=== PATIENT | female | born 1990 | race Hispanic/Latino ===

== ENCOUNTER 2017-03-05 20:56 | Inpatient (IN) | payer BC, OTHER ==
[2017-03-05] MEDS ORDERED: Misoprostol 200 MCG TAB PR PRN (21:24)
[2017-03-05] MEDS ORDERED: Carboprost 250 MCG/ML AMP IM PRN (21:24)
[2017-03-05] MEDS ORDERED: Acetaminophen 500 MG TAB PO PRN (21:24)
[2017-03-05] MEDS ORDERED: Penicillin G Potassium 5 MILL.UNITS in Sodium Chloride 0.9% 100 ML IVPB SCH (21:24)
[2017-03-05] MEDS ORDERED: LR 500 ML/Oxytocin 10 units 500 ML IV SCH (21:24)
[2017-03-05] MEDS ORDERED: Promethazine HCl 25 MG/ML VIAL IM PRN (21:24)
[2017-03-05] MEDS ORDERED: Lidocaine 1% (PF) 30 ML VIAL SC PRN (21:24)
[2017-03-05] MEDS ORDERED: Ibuprofen 800 MG TAB PO PRN (21:24)
[2017-03-05] MEDS ORDERED: Zolpidem Tartrate 5 MG TAB PO PRN (21:24)
[2017-03-05] MEDS ORDERED: Ondansetron HCl/PF 4 MG/2 ML Vial IVP PRN (21:24)
[2017-03-05] MEDS ORDERED: LR / Pitocin 40 units/1000 ml 1,000 ML IV PRN (21:24)
[2017-03-05] MEDS ORDERED: Diphenoxylate HCl/Atropine Tablet PO PRN (21:24)
[2017-03-05] MEDS ORDERED: HYDROcodone/Acetaminophen 5/325 mg Tablet PO PRN (21:24)
[2017-03-05 21:27] VITALS: BMI 29.9
[2017-03-05 21:47] LABS: Hematocrit 37.6 % (36.0-47.0); Mean Platelet Volume 7.8 fL (7.4-10.4); Red Blood Cell (RBC) Count 4.24 mill/uL (4.20-5.40); White Blood Cell (WBC) Count 10.2 thou/uL (4.8-10.8)
[2017-03-05] MEDS: Lactated Ringer's 1,000 ML IV SCH (22:12)
[2017-03-06] MEDS ORDERED: Fentanyl 4 mcg/Marc 0.1% Cadd 100 ML ONE (00:49)
[2017-03-06] MEDS: Lactated Ringer's 1,000 ML IV SCH ×2 (01:43→08:27)
[2017-03-06] MEDS ORDERED: ePHEDrine/0.9% NaCl/PF SYRINGE 50 mg/10 ml SLOW IVP PRN (01:47)
[2017-03-06] MEDS ORDERED: Acetaminophen 325 MG TAB PO PRN (01:47)
[2017-03-06] MEDS ORDERED: Ondansetron HCl/PF 4 MG/2 ML Vial IVP PRN ×2 (01:47→14:14)
[2017-03-06] MEDS ORDERED: diphenhydrAMINE 50 MG/ML VIAL IVP PRN (01:47)
[2017-03-06] MEDS ORDERED: Promethazine HCl 25 MG/ML VIAL IM PRN (01:47)
[2017-03-06] MEDS ORDERED: Lactated Ringer's 500 ML IV PRN (01:47)
[2017-03-06] MEDS ORDERED: Eucerin (Mineral Oil/Petrolatum,White) 30 gm Jar TOP PRN (01:47)
[2017-03-06] MEDS ORDERED: Naloxone HCl 0.4 mg/ml Vial IVP PRN ×2 (01:47)
[2017-03-06] MEDS: Misoprostol 100 MCG TAB VAG SCH ×3 (01:59→16:43)
[2017-03-06] MEDS ORDERED: Fentanyl 4mcg/Marcaine 0.1% Cassette 100 ML EPIDURAL SCH (02:00)
[2017-03-06] MEDS: Penicillin G 2.5 MILL.units 2.5 MILL.UNITS in Premix Bag 1 BAG IVPB SCH ×3 (02:00→16:43)
[2017-03-06] MEDS ORDERED: Communication Order-Pharmacy FS SCH (02:00)
--- NOTE | 2017-03-06 08:22 | PDOC.LDHP ---
Labor and Delivery H&P Chief complaint: scheduled induction HPI: 27yo at 40w4d by LMP here for IOL. Was in spontaneous early labor on admit and progressed to 5cm overnight. Pitocin was started and PCN for GBS ppx. Pt now feeling pressure in LLQ, s/p bolus by anesthesia. Current gestational age (weeks): 40 Due date: 03/02/17 Dating criteria: last menstrual period Grav: 1 Para: 0 Current complications: none Abnormal US findings: No Past Medical History: migraine HURST Current medications: pre-carlo vitamins Previous surgical history: other (cataract surgery, T&A) Allergies/Adverse Reactions: Allergies Allergy/AdvReac Type Severity Reaction Status Date / Time sulfamethoxazole Allergy Mild Rash Verified 03/05/17 21:25 [From Bactrim] trimethoprim [From Bactrim] Allergy Mild Rash Verified 03/05/17 21:25 Social history: none - Physical Exam Vital signs reviewed and normal: yes General: NAD Heart: RRR Lungs: CTAB Abdomen: gravid Extremeties: no edema FHT: category 1 Revere contractions every: q2-3min - Vaginal Exam cm dilated: 9 Effacement: 90% Station: -1 (arom clear) - OB Labs Blood type: AB RH: positive Antibody Screen: negative HIV: negative RPR: negative HEPSAg: negative 1 hour GCT: negative GBS: positive Rubella: immune - Assessment L&D Assessment: term patient in labor - Plan Plan: admit to L&D, labor augmentation if indicated, GBS antibiotic prophylaxis , informed consent obtained, anesthesia consult for pain management
[2017-03-06 11:10] LABS: CO2 Tension (PaCO2) 40.9 mmHg (44.0-56.0)
--- NOTE | 2017-03-06 11:14 | PDOC.OPDEL ---
OB Operative/Delivery Note Delivery Dr/Surgeon: romain Assist: n/a Pre-Delivery Diagnosis: active labor Procedure/Post Delivery Dx: operative vaginal delivery (VE, NRFHT) Weeks gestation: 40 Anesthesia: epidural - Findings A Sex: female - Additional Findings/Plan Placenta delivered: spontaneous Repaired Obstetrical Laceration: episiotomy (2nd degree mediolateral, repaired with 2-0 vicyrl, excellent hemostasis) Estimated blood loss: 400 Compilations/Other Findings: Prolonged deceleration to 60s x 2 min, minimal variability, +4 station, MUNIR, decision made to proceed with VE, Extraction successful in 2 contractions, total rosemary time 90sec, 1 pop off, wesley present, cord gas sent. Tight nuchal x 1, reduced at perineum. Pt tolerated procedure well
[2017-03-06] MEDS ORDERED: Benzocaine/Menthol 20-0.5% 60 ML CAN TOP PRN (14:14)
[2017-03-06] MEDS ORDERED: Milk Of Magnesia 30 ML UDCUP PO PRN (14:14)
[2017-03-06] MEDS ORDERED: Lanolin Ointment 7 GM TUBE TOP PRN (14:14)
[2017-03-06] MEDS ORDERED: LR / Pitocin 40 units/1000 ml 1,000 ML IV SCH (14:14)
[2017-03-06] MEDS ORDERED: Bisacodyl 10 MG SUPP PR PRN (14:14)
[2017-03-06] MEDS ORDERED: Adacel (T-DAP) 0.5 ML VIAL IM ONE (14:14)
[2017-03-06] MEDS ORDERED: HYDROcodone/Acetaminophen 5/325 mg Tablet PO PRN (14:14)
[2017-03-06] MEDS ORDERED: diphenhydrAMINE 25 MG CAP PO PRN (14:14)
[2017-03-06] MEDS ORDERED: Preparation H Ointment 28 GM TUBE PR PRN (14:14)
[2017-03-06] MEDS: Ibuprofen 800 MG TAB PO SCH ×2 (16:40→20:21)
[2017-03-06] MEDS: Ferrous Sulfate 325 MG TAB PO SCH (17:06)
[2017-03-06] MEDS: Docusate (Surfak) 240 MG CAP PO SCH (20:21)
[2017-03-06] MEDS ORDERED: Bupivacaine 0.25% HCL 30 ML VIAL ONE (22:16)
[2017-03-06] MEDS ORDERED: Bupivacaine/Epinephrine 0.25% 30 ML VIAL ONE (22:16)
[2017-03-06] MEDS ORDERED: ePHEDrine/0.9% NaCl/PF SYRINGE 50 mg/10 ml ONE (22:16)
[2017-03-07] MEDS: Ibuprofen 800 MG TAB PO SCH ×3 (04:35→21:08)
[2017-03-07] MEDS: HYDROcodone/Acetaminophen 5/325 mg Tablet PO PRN ×3 (06:00→18:22)
[2017-03-07] MEDS: Ferrous Sulfate 325 MG TAB PO SCH ×2 (07:13→18:22)
[2017-03-07] MEDS: Prenatal Vitamin 1 TAB PO SCH (09:15)
[2017-03-07] MEDS: Docusate (Surfak) 240 MG CAP PO SCH ×2 (09:15→21:09)
[2017-03-07 11:58] VITALS: TEMP 98.1
[2017-03-08] MEDS: Ibuprofen 800 MG TAB PO SCH ×2 (05:21→12:38)
[2017-03-08] MEDS: Ferrous Sulfate 325 MG TAB PO SCH (08:31)
[2017-03-08] MEDS: Prenatal Vitamin 1 TAB PO SCH (08:31)
[2017-03-08] MEDS: Docusate (Surfak) 240 MG CAP PO SCH (08:31)
[2017-03-08 08:42] VITALS: BP 105/61
--- NOTE | 2017-03-08 08:54 | PDOC.PP ---
Post Progress Note Post Day #: 2 Subjective: doing well, no concerns, desires DC PO intake tolerated: yes Flatus: yes Ambulation: yes Vital Signs (12 hours) Temp Pulse Resp BP 03/08/17 07:45 98.1 F 79 18 105/61 Weight Weight 164 lb - Physical Examination Respiratory: non-labored breathing Abdominal: no distention Fundus firm & at: below umb Extremities: negative homans (B) Skin: no rash Psychiatric: normal affect Result Diagrams: 03/05/17 21:30 Additional Labs: Post Labs Hep Bs Antigen Non-Reactive S/CO (NonReactive) 03/05/17 21:30 (1) Vaginal delivery Code(s): O80 - ENCOUNTER FOR FULL-TERM UNCOMPLICATED DELIVERY Status: Acute - Assessment/Plan PPD 2 plan for DC home today.
== END 2017-03-08 13:25 | disposition home or self-care (01) | DRG 775 ==
LOC: L&D 20:56 → 3SW 03-06 15:48
PROVIDERS: ADMIT Student in an Organized Health Care Education/Training Program; ATTEND Student in an Organized Health Care Education/Training Program
PROC: 10907ZC Drainage of Amniotic Fluid, Therapeutic from Products of Conception, Via Natural or Artificial Opening (ICD-10-PCS; 2017-03-05)
PROC: 3E0P3VZ Introduction of Hormone into Female Reproductive, Percutaneous Approach (ICD-10-PCS; 2017-03-05)
PROC: 10D07Z6 Extraction of Products of Conception, Vacuum, Via Natural or Artificial Opening (ICD-10-PCS; principal; 2017-03-06)
PROC: 0W8NXZZ Division of Female Perineum, External Approach (ICD-10-PCS; 2017-03-06)
DX: O76 Abnormality in fetal heart rate and rhythm complicating labor and delivery (principal); O99.824 Streptococcus B carrier state complicating childbirth; Z37.0 Single live birth; Z3A.40 40 weeks gestation of pregnancy; O69.1XX0 Labor and delivery complicated by cord around neck, with compression, not applicable or unspecified
CPT/HCPCS: 82805; 85027; 86780; 87340; J0595; J2001; J2540; J7050; J7120; S0020

== ENCOUNTER 2018-03-09 13:29 | Emergency (ER) | payer BC, OTHER, SELFPAY ==
[2018-03-09] MEDS ORDERED: Bicillin LA 1.2 MILLION UNITS/2 ML SYRINGE ONE (14:52)
[2018-03-09] MEDS ORDERED: Ibuprofen 200 MG TAB ONE (15:02)
== END 2018-03-09 15:15 | disposition home or self-care (01) ==
LOC: ERS 13:29
DX: J02.9 Acute pharyngitis, unspecified (principal)
CPT/HCPCS: 87081; 87430; 96372; J0561